=== PATIENT | male | born 1930 | race Caucasian/White ===

== ENCOUNTER 2020-06-06 16:13 | Emergency (ER) | payer OTHER ==
[2020-06-06 16:37] VITALS: TEMP 98; BMI 27.4
[2020-06-06 17:59] LABS: BASO % 0.5 % (0-2.0); EOS % 0.3 % (0-4.5); HEMATOCRIT 32.6 % (35.4-49); HEMOGLOBIN 11.2 GM/dL (11.7-16.9); LYMPH % 22.5 % (8-40); MCHC 34.3 g/dl (32.0-35.9); MEAN CELL VOLUME 99.1 fl (80-96); MEAN PLT VOLUME 8.9 fl (7.5-11.1); MONO % 17.9 % (3.8-10.2); NEUT % 58.8 % (42.8-82.8); PLATELET COUNT 105 K/MM3 (134-434); RBC 3.29 M/mm3 (4.00-5.60); RDW 14.5 % (11.9-15.9); WHITE BLOOD COUNT 6.4 K/mm3 (4.0-10.0)
[2020-06-06 18:13] LABS: POTASSIUM 4.3 mmol/L (3.5-5.1)
[2020-06-06 18:14] LABS: CALCIUM 9.5 mg/dL (8.5-10.1)
[2020-06-06 18:15] LABS: BLOOD UREA NITROGEN 32.2 mg/dL (7-18)
[2020-06-06 18:18] LABS: CREATININE 1.3 mg/dL (0.55-1.3)
[2020-06-06 18:26] LABS: ANISOCYTOSIS 1+; MACROCYTOSIS 0; PLATELET ESTIMATE DECREASED
[2020-06-06] MEDS ORDERED: BAMLANIVIMAB 700 MG, ETESEVIMAB 1,400 MG in SODIUM CHLORIDE 250 ML IVPB ONE (18:30)
[2020-06-06 20:44] VITALS: BP 158/87; PULSE 90
== END 2020-06-06 20:49 | disposition home or self-care (01) ==
LOC: JER 16:13
DX: U07.1 COVID-19 (principal)
CPT/HCPCS: 36415; 80048; 85025; 99284-25; M0239; Q0239; Q0245